=== PATIENT | female | born 1990 | race Caucasian/White ===

== ENCOUNTER 2024-09-26 09:21 | Emergency (ER) | payer OTHER, SELFPAY ==
--- NOTE | ~2024-09-26 | US_ITS ---
CLINICAL HISTORY: b l ovarian cysts, abd pain, N V, r o torsion Ultrasound pelvis transabdominal and transvaginal. COMPARISON: CT abdomen and pelvis dated 09/26/24 at 14:48 EDT Technique: Real time sonographic imaging, including color-flow imaging, was performed by the primary grade teacher. Multiple banking representative static images were saved for review. FINDINGS: Anteverted uterus appears normal and measures 10.8 x 4.1 x 6.7 cm. No uterine fibroids identified. Endometrium: 10 mm, within normal limits. Right ovary measures 5.5 x 6.0 x 4.8 cm. Normal color and arterial and venous waveform Doppler. Complex right ovarian cystic lesion without internal flow measuring 4.4 x 4.2 x 4.0 cm. Left ovary measures 4.6 x 3.4 x 3.6 cm. Normal color and arterial and venous waveform Doppler. No left adnexal mass identified. Complex left ovarian cystic lesion measuring 2.8 x 2.7 x 3.2 cm. Small amount of free fluid present within the posterior cul-de-sac. IMPRESSION: 1. No evidence of ovarian torsion. 2. Bilateral avascular complex cystic lesions likely representing hemorrhagic cyst measuring up to 4.4 cm on the right. Recommend follow-up imaging in 6-12 weeks. This document has been electronically signed by: Domingo Costello MD on 09/26/2024 18:57:04
--- NOTE | ~2024-09-26 | CT_ITS ---
CLINICAL HISTORY: diffuse abd pain n v CT abdomen and pelvis with IV contrast. COMPARISON: None provided. FINDINGS: Partially visualized lung bases are unremarkable. No focal hepatic lesion. Normal gallbladder. Normal pancreas. Normal adrenal glands. Symmetric renal enhancement. No hydronephrosis. Motion artifact limits evaluation of the portions of the bowel in the mid to lower abdomen. Appendix is not definitively identified. No bowel obstruction. Multiple normal-sized retroperitoneal lymph nodes. Normal abdominal aorta. Urinary bladder is unremarkable given degree of distention. Dominant left ovarian cyst/follicle measuring up to 3.7 cm. Dominant right ovarian cyst/follicle measuring up to 5.0 cm. Small fat containing umbilical hernia. No acute fracture or suspicious bone lesion. IMPRESSION: 1. Appendix is not definitively identified. No secondary evidence of appendicitis. No bowel obstruction. 2. Bilateral ovarian cystic lesions measuring up to 5.0 cm on the right and 3.7 cm on the left. Recommend pelvic ultrasound for further characterization. This document has been electronically signed by: Domingo Costello MD on 09/26/2024 16:17:22
--- NOTE | ~2024-09-26 | US_ITS ---
CLINICAL HISTORY: b l ovarian cysts, abd pain, N V, r o torsion Ultrasound pelvis transabdominal and transvaginal. COMPARISON: CT abdomen and pelvis dated 09/26/24 at 14:48 EDT Technique: Real time sonographic imaging, including color-flow imaging, was performed by the bookkeeper receptionist. Multiple consumer sales representative static images were saved for review. FINDINGS: Anteverted uterus appears normal and measures 10.8 x 4.1 x 6.7 cm. No uterine fibroids identified. Endometrium: 10 mm, within normal limits. Right ovary measures 5.5 x 6.0 x 4.8 cm. Normal color and arterial and venous waveform Doppler. Complex right ovarian cystic lesion without internal flow measuring 4.4 x 4.2 x 4.0 cm. Left ovary measures 4.6 x 3.4 x 3.6 cm. Normal color and arterial and venous waveform Doppler. No left adnexal mass identified. Complex left ovarian cystic lesion measuring 2.8 x 2.7 x 3.2 cm. Small amount of free fluid present within the posterior cul-de-sac. IMPRESSION: 1. No evidence of ovarian torsion. 2. Bilateral avascular complex cystic lesions likely representing hemorrhagic cyst measuring up to 4.4 cm on the right. Recommend follow-up imaging in 6-12 weeks. This document has been electronically signed by: Domingo Costello MD on 09/26/2024 18:57:04
--- NOTE | 2024-09-26 09:28 | ED_ITS ---
HPI - General Adult General Chief complaint: Nausea/Vomiting/Diarrhea Stated complaint: VOMITING NAUSEA Time Seen by Provider: 09/26/24 09:24 Source: patient and EMS Mode of arrival: EMS Limitations: no limitations History of Present Illness ED Provider: SHANNAN CASANOVA PA-C HPI narrative: 34 year old female pmhx significant for endometriosis and cyclical vomiting presents to the ED today via EMS for evaluation of diffuse abdominal pain, nausea, and vomiting x2 days. States this feels similar to her past cyclical vomiting symptoms. Denies consuming any abnormal foods. Admits to vaping daily. Patient states she has been evaluated at [facility] for this and discharged home. Denies fever, chills, urinary sx, flank pain. Related Data Allergies Allergy/AdvReac Type Severity Reaction Status Date / Time haloperidol (From Haldol) Allergy Involuntary Verified 09/26/24 09:37 Spasms oxycodone Allergy Vomiting Verified 09/26/24 09:37 Review of Systems 2 Review of Systems: Yes all other systems are reviewed and are negative PMFSH Past Medical History Attestation statement: The following information was validated with the patient. Source: old records reviewed and nursing notes reviewed Physical Exam ED Vital Signs: Vital Signs - 24 hr 09/26/24 09:31 09/26/24 10:05 09/26/24 14:26 Temperature 97.9 F Pulse Rate 86 Respiratory Rate 22 H 14 Blood Pressure 127/80 Pulse Oximetry 97 96 Oxygen Delivery Method Room Air Room Air 09/26/24 18:02 Temperature 98.9 F Pulse Rate 98 Respiratory Rate 18 Blood Pressure 109/60 Pulse Oximetry 97 Oxygen Delivery Method Room Air BMI result Body Mass Index 41.6 tachypneic General: uncomfortable appearing, retching Skin: Warm, dry, intact. No rashes or lesions. Head: Normocephalic, atraumatic. EENT: Hearing is intact b/l. Conjunctiva clear. PERRLA. EOM intact. Moist mucous membranes.? Neck: Supple without LAD Cardiac: Chest wall symmetric. RRR Lungs: Normal respiratory effort without accessory muscle use. CTA bilaterally. Abdomen: Obese abdomen soft, ND, mildly tender to palpation of the epigastric region without rebound or guarding. active bs x4. no cvat. Back: No midline spinous or paraspinal tenderness. No step off deformity. Ext: Upper and lower extremities atraumatic, without tenderness, deformity, swelling or erythema. Neuro: AOx3. Normal speech. Ambulating with steady gait. Course Course Course Narrative: 1042 -- [facility] records reviewed. Patient evaluated at their facility yesterday for nausea, vomiting, diarrhea and abdominal pain. Labs revealed a leukocytosis to 13.8 with left shift that appeared to be around patient's baseline. Potassium 3.4. Renal and liver function within normal limits. She was noted to have a lactic of 2.1 with negative troponin. negative. there was no abdominal imaging ordered. She required multiple doses of IV medications (Toradol, Ativan, Reglan, morphine, Zyprexa, Zofran) in order to get her symptoms under control. She appeared to respond well to IV Toradol and Zyprexa. He was able to tolerate p.o. intake and she was ultimately discharged home with outpatient follow-up. Todays visit: Labs reveal leukocytosis to 14.1 with left shift, mildly elevated from yesterday. chemistry shows hyperchloridemia to 114. no SUSANNA. random glucose 141. liver function wnl. lipase wnl. beta hcg undetectable. > patient has received reglan + benadryl IV. seems to respond well to this, lying comfortably on the exam bed sleeping. awaiting viral swabs, UA/UDS 1100 -- patient is starting to retch again. IV diazepam ordered. 1313 -- patient initially responsive to IV diazepam, sleeping in room. Awoke and began retching again. will order EKG to look at QT. plan for liter of LR, compazine and capcasin cream w/ re-evaluation. 1348 -- patient refusing capsacin cream. demanding more meds. ekg without acute ischemic changes, no qt prolongation, difficulty obtaining ekg as patient will not sit still. tech attempted ekg x3. patient has allergy of muscle spasms to haldol. she has already received benadryl. will trial droperidol and monitor. 1800 -- CT abdomen /pelvis showing bilateral ovarian cystic lesions measuring up to 5 cm in the right and 3.7 cm on the left. Appendix not definitively identified - given benign exam findings, I have low suspicion for appendicitis. otherwise unremarkable. > Discussed workup results with patient. Given intractable vomiting, will order Doppler to confirm flow to ovaries. Patient agreeable. No longer retching. I have provided her with quan hall and bronson to trial. > Sign-out given to Janine pending US results and likely d/c home. Reevaluation(s) Reevaluation #1: I KELSI GUEVARA PA-C HAVE ACCEPTED CARE OF THE PATIENT AT SIGNED OUT PENDING TRANSVAGINAL ULTRASOUND AND FINAL DISPOSITION ..... Patient had the scan, she is currently eating TRANSVAGINAL ULTRASOUNDIMPRESSION: 1. No evidence of ovarian torsion. 2. Bilateral avascular complex cystic lesions likely representing hemorrhagic cyst measuring up to 4.4 cm on the right. Recommend follow-up imaging in 6-12 weeks. Discussed findings with the patient, she admits she has PCOS, she will follow up with her sales and marketing analyst she is eating drinking eager for discharge Medications Administered Discontinued Medications Generic Name Dose Route Start Last Admin Trade Name Freq PRN Reason Stop Dose Admin Capsaicin 1 appl 09/26/24 13:11 09/26/24 13:48 Capsaicin 0.025% Cream 60 Gm Tube TOPICAL 09/26/24 13:12 Not Given ONCE ONE Protocol Diazepam 5 mg 09/26/24 11:01 09/26/24 11:08 Diazepam 10 Mg/2 Ml Cartridge IVPUSH 09/26/24 11:02 5 mg STAT STA Administration Diphenhydramine HCl 50 mg 09/26/24 09:42 09/26/24 10:01 Diphenhydramine Hcl 50 Mg/Ml Vial IVPUSH 09/26/24 09:43 50 mg ONCE ONE Administration Droperidol 1.25 mg 09/26/24 13:47 09/26/24 14:00 Droperidol 5 Mg/2 Ml Vial IVPUSH 09/26/24 13:48 1.25 mg ONCE ONE Administration Sodium Chloride 1,000 mls @ 999 mls/hr 09/26/24 09:45 09/26/24 11:10 Ns IV 09/26/24 10:45 Infused .Q1H1M PAOLA Infusion Lactated Ringer's 500 mls @ 999 mls/hr 09/26/24 13:14 09/26/24 19:36 Lr IV 09/26/24 13:44 Infused .Q31M ONE Infusion Iohexol 85 ml 09/26/24 14:53 09/26/24 14:53 Iohexol 350 Mg/Ml 100 Ml Infus..Btl IV 09/26/24 14:54 85 ml ONCE ONE Administration Ketorolac Tromethamine 30 mg 09/26/24 13:48 09/26/24 13:52 Ketorolac Tromethamine 30 Mg/Ml Vial IVPUSH 09/26/24 13:49 30 mg ONCE ONE Administration Metoclopramide HCl 10 mg 09/26/24 09:42 09/26/24 10:01 Metoclopramide Hcl 10 Mg/2 Ml Vial IVPUSH 09/26/24 09:43 10 mg ONCE ONE Administration Medical Decision Making Medical Decision Making [facility] Narrative: 34 year old female pmhx significant for endometriosis and cyclical vomiting presents to the ED today via EMS for evaluation of diffuse abdominal pain, nausea, and vomiting x2 days. vital signs stable. afebrile. she is uncomfortable appearing, rolling around on bed. Obese abdomen soft, ND, mildly tender to palpation of the epigastric region without rebound or guarding. active bs x4. Plan for labs, UA/UDS, pain control and IVF. Differential Diagnosis Differential Diagnoses: The differential diagnosis associated with the presentation includes cyclical vomiting, gastroenteritis, colitis, bowel obstruction, anxiety/ panic attack, endometriosis, IUP, ectopic, boerhaave syndrome, rachael dillan tear Admission/Observation not indicated Lab Data [facility] Lab Attestation statement: I reviewed the patient's lab results. as above. 09/26/24 09:47 09/26/24 09:47 Labs: Lab Results 09/26/24 09/26/24 Range/Units 09:47 14:26 WBC 14.1 H (4.8-10.8) X10*3/uL RBC 4.04 L (4.20-5.50) X10*6/uL Hgb 12.4 (12.0-16.0) g/dl Hct 35.4 L (37.0-47.0) % MCV 87.6 (80.0-98.0) fL MCH 30.7 (27.0-33.0) pg MCHC 35.0 (31.0-35.0) g/dl RDW 13.2 (11.0-16.0) % Plt Count 186 (160-400) X10*3/uL MPV 10.4 (9.4-12.3) fL Immature Gran % (Auto) 0.4 (0.0-0.4) % Neut % (Auto) 83.2 H (45-73) % Lymph % (Auto) 11.5 L (20-40) % [place] % (Auto) 4.7 (2-11) % Eos % (Auto) 0.0 (0-4) % Baso % (Auto) 0.2 (0-2) % Lymph # (Auto) 1.6 (1.2-4.9) X10*3/uL [place] # (Auto) 0.7 (0.1-1.2) X10*3/uL Eos # (Auto) 0.0 (0.0-0.4) X10*3/uL Baso # (Auto) 0.0 (0.0-0.2) X10*3/uL Abs Immat Gran (auto) 0.06 H (0.00-0.03) X10*3/uL Absolute Neuts (auto) 11.8 H (2.0-8.3) x10*3/uL Absolute Nucleated RBC 0.000 (0.0-0.012) X10*3/uL Nucleated RBC % (auto) 0.0 (0.0-0.2) /100WBC Sodium 142 (135-145) mmol/L Potassium 3.6 (3.3-5.1) mmol/L Chloride 114 H (96-108) mmol/L Carbon Dioxide 17 L (22-29) mmol/L Anion Gap 15 (12-20) BUN 13 (9-16) mg/dL Creatinine 0.71 (0.5-1.4) mg/dL Estim Creat Clear Calc 137.5 Estimated GFR > 60 Random Glucose 141 H (60-115) mg/dL Calcium 8.6 (8.4-10.2) mg/dL Magnesium 1.7 (1.6-2.6) mg/dL Total Bilirubin 0.7 (0.0-1.0) mg/dL AST 27 (5-31) U/L ALT 19 (0-31) U/L Alkaline Phosphatase 31 L (39-117) U/L Troponin I High Sens < 2.7 (<3.5-17.0) ng/L Total Protein 6.8 (6.5-8.0) g/dL Albumin 4.3 (3.5-5.0) g/dL Lipase 13 (8-78) U/L Beta HCG, Quant < 2 mIU/mL Influenza Type A (PCR) NEGATIVE (Negative) Influenza Type B (PCR) NEGATIVE (Negative) RSV RNA Qual (PCR) NEGATIVE (Negative) SARS-CoV-2 RNA (RT-PCR) NEGATIVE (Negative) Independent Interpretation I performed an independent interpretation of an: Ultrasound and CT Scan Interpretation: ct a/p without bowel obstruction pelvic US with doppler flow to b/l ovaries Radiology Impression Discussion of test interpretation with radiology: I have reviewed the radiologist's reading. Radiologist Impression: Date of Service: 09/26/24 Procedure(s): CT abdomen pelvis w IV con Accession Number(s): [id number] cc: Physician,Unknown ; Shannan Casanova~ Report Number: [id number]: Total DLP = 842.00 mGy-cm CLINICAL HISTORY: diffuse abd pain n v CT abdomen and pelvis with IV contrast. COMPARISON: None provided. FINDINGS: Partially visualized lung bases are unremarkable. No focal hepatic lesion. Normal gallbladder. Normal pancreas. Normal adrenal glands. Symmetric renal enhancement. No hydronephrosis. Motion artifact limits evaluation of the portions of the bowel in the mid to lower abdomen. Appendix is not definitively identified. No bowel obstruction. Multiple normal-sized retroperitoneal lymph nodes. Normal abdominal aorta. Urinary bladder is unremarkable given degree of distention. Dominant left ovarian cyst/follicle measuring up to 3.7 cm. Dominant right ovarian cyst/follicle measuring up to 5.0 cm. Small fat containing umbilical hernia. No acute fracture or suspicious bone lesion. IMPRESSION: 1. Appendix is not definitively identified. No secondary evidence of appendicitis. No bowel obstruction. 2. Bilateral ovarian cystic lesions measuring up to 5.0 cm on the right and 3.7 cm on the left. Recommend pelvic ultrasound for further characterization. This document has been electronically signed by: Domingo Costello MD on 09/26/2024 16:17:22 Date of Service: 09/26/24 Procedure(s): US pelvic ovarian doppler Accession Number(s): [id number] cc: Physician,Unknown ; Shannan Casanova~ CLINICAL HISTORY: b l ovarian cysts, abd pain, N V, r o torsion Ultrasound pelvis transabdominal and transvaginal. COMPARISON: CT abdomen and pelvis dated 09/26/24 at 14:48 EDT Technique: Real time sonographic imaging, including color-flow imaging, was performed by the consumer lending manager. Multiple branch customer service representative static images were saved for review. FINDINGS: Anteverted uterus appears normal and measures 10.8 x 4.1 x 6.7 cm. No uterine fibroids identified. Endometrium: 10 mm, within normal limits. Right ovary measures 5.5 x 6.0 x 4.8 cm. Normal color and arterial and venous waveform Doppler. Complex right ovarian cystic lesion without internal flow measuring 4.4 x 4.2 x 4.0 cm. Left ovary measures 4.6 x 3.4 x 3.6 cm. Normal color and arterial and venous waveform Doppler. No left adnexal mass identified. Complex left ovarian cystic lesion measuring 2.8 x 2.7 x 3.2 cm. Small amount of free fluid present within the posterior cul-de-sac. IMPRESSION: 1. No evidence of ovarian torsion. 2. Bilateral avascular complex cystic lesions likely representing hemorrhagic cyst measuring up to 4.4 cm on the right. Recommend follow-up imaging in 6-12 weeks. This document has been electronically signed by: Domingo Costello MD on 09/26/2024 18:57:04 Independent Historian Clinical information obtained from an independent historian. History obtained from or confirmed by: EMS External Record Review External record reviewed: Inpatient record, Office record, Outpatient record, Prior outpatient labs, Prior outpatient radiology and Outside ED record Prescription Management I considered prescription management with: Other (antiemetic) Chronic Conditions Patient?s care impacted by: Other (cyclical vomiting) Social Determinants Patient?s care significantly limited by Social Determinants of Health including: Other Social Determinant of Health Critical Care Time Critical Care Time Critical Care Time: Yes Total Critical Care Time: 35 Attestation: Critical care time in the amount of 35 minutes has been provided to the patient in terms of direct patient care, frequent reevaluation, review and interpretation of medical data and results, and management of potentially life- threatening conditions. This is all outside of any medical procedures. Discharge Plan Discharge Clinical Impression: Ovarian cyst Patient Disposition: Home, Self-Care Instructions: Ovarian Cyst (ED) Additional Instructions: All of your screening labs were normal, the CT scan of your abdomen and pelvis was negative for acute process. The transvaginal ultrasound revealed that you have bilateral ovarian cyst, the recommendation is free to follow up with your sales and marketing analyst for repeat transvaginal ultrasound in 6-12 weeks. Follow up with your primary care provider as needed. Interventions: ED Discharge Assessment Last Done: 09/26/24 19:28 Discharge Date/Time: 09/26/24 19:43 Print Language: [place]
[2024-09-26 09:31] VITALS: BP 127/80; PULSE 114; PULSE 86; RESP 22; O2SAT 95; O2SAT 97; BMI 41.6
[2024-09-26 09:55] LABS: MANUAL DIFF FLAG NO
[2024-09-26 09:57] LABS: Hematocrit 35.4 % (37.0-47.0); Hemoglobin 12.4 g/dl (12.0-16.0); Imm Gran Abs Auto 0.06 X10*3/uL (0.00-0.03); Imm Gran Pct Auto 0.4 % (0.0-0.4); Lymphocytes Absolute Auto 1.6 X10*3/uL (1.2-4.9); Mean Corpuscular HGB Conc 35.0 g/dl (31.0-35.0); Mean Corpuscular Hemoglobin 30.7 pg (27.0-33.0); Mean Corpuscular Volume 87.6 fL (80.0-98.0); NRBC Abs Auto 0.000 X10*3/uL (0.0-0.012); NRBC Pct Auto 0.0 /100WBC (0.0-0.2); Platelet Count 186 X10*3/uL (160-400); Red Blood Count 4.04 X10*6/uL (4.20-5.50); White Blood Count 14.1 X10*3/uL (4.8-10.8)
--- NOTE | 2024-09-26 10:01 | PC.NURSE ---
Pt vomiting constantly. rocking in bed. moist mm.
[2024-09-26 10:05] VITALS: TEMP 36.6
[2024-09-26 10:17] LABS: Alanine Aminotransferase 19 U/L (0-31); Albumin Level 4.3 g/dL (3.5-5.0); Alkaline Phosphatase 31 U/L (39-117); Anion Gap 15 (12-20); Aspartate Amino Transferase 27 U/L (5-31); Blood Urea Nitrogen 13 mg/dL (9-16); Calcium 8.6 mg/dL (8.4-10.2); Carbon Dioxide 17 mmol/L (22-29); Chloride 114 mmol/L (96-108); Creatinine Clr Calc Pharmacy 137.5; Estimated Glomerular Filt Rate > 60; Lipase 13 U/L (8-78); Magnesium 1.7 mg/dL (1.6-2.6); Potassium 3.6 mmol/L (3.3-5.1); Sodium 142 mmol/L (135-145); Total Protein 6.8 g/dL (6.5-8.0)
[2024-09-26 10:50] LABS: Resp Syncy Virus RNA Qual PCR NEGATIVE (Negative); SARS COV2 PCR INHOUSE NEGATIVE (Negative)
[2024-09-26] MEDS: diazePAM 10 MG/2 ML CARTRIDGE 5 MG IVPUSH (11:08)
--- NOTE | 2024-09-26 13:09 | ECG_ITS ---
Test Reason : vommiting Blood Pressure : */* mmHG Vent. Rate : 70 BPM Atrial Rate : 70 BPM P-R Int : 180 ms QRS Dur : 90 ms QT Int : 374 ms P-R-T Axes : 63 77 79 degrees QTcB Int : 403 ms Poor data quality, interpretation may be adversely affected AGE AND GENDER SPECIFIC ECG ANALYSIS Sinus rhythm with marked sinus arrhythmia ST elevation consider lateral injury or acute infarct ACUTE VT / STEMI Abnormal ECG No previous ECGs available Referred By: Shannan Casanova Electronically Signed By:
[2024-09-26] MEDS: Lactated Ringers 500 ML 999 ML IV (13:55)
--- NOTE | 2024-09-26 14:00 | PC.NURSE ---
Pt found dry heaving again, restless, c/o abd pain. Unable to perform ekg d/t pts inability to sit still. Provider made aware, new orders received.
[2024-09-26 14:26] VITALS: RESP 14; O2SAT 96
[2024-09-26] MEDS: iohexoL 350 MG/ML 100 ML INFUS..BTL 85 ML IV (14:53)
[2024-09-26 15:08] LABS: Troponin-I High Sensitivity < 2.7 ng/L (<3.5-17.0)
--- NOTE | 2024-09-26 15:26 | PC.NURSE ---
Pt resting more comfortably, states Im getting there Pt is resting comfortably w/ lights out. Awaiting CT results
[2024-09-26 18:02] VITALS: BP 109/60; PULSE 98; RESP 18; TEMP 37.2; O2SAT 97
[2024-09-26 19:19] VITALS: BP 116/62; PULSE 56; RESP 18; TEMP 36.7; O2SAT 100
[2024-09-26 19:28] VITALS: BP 116/62; PULSE 56; RESP 18; TEMP 36.7; O2SAT 100
== END 2024-09-26 19:43 | disposition home or self-care (01) ==
PROVIDERS: Physician Assistant Medical; Emergency Provider Emergency Medicine
DX: N83.202 Unspecified ovarian cyst, left side (principal); N83.201 Unspecified ovarian cyst, right side; R10.13 Epigastric pain; R11.2 Nausea with vomiting, unspecified; Z03.818 Encounter for observation for suspected exposure to other biological agents ruled out; E66.9 Obesity, unspecified; Z68.41 Body mass index [BMI] 40.0-44.9, adult
CPT/HCPCS: 36415; 74177; 76830; 76856; 80053; 83690; 83735; 84484; 84702; 85025; 87637; 93005; 93975; 96361; 96374; 96375; 99285; 99291; J1200; J1790; J1885; J2765; J3360; J7120; Q9967

== ENCOUNTER → 2024-09-26 14:01 | Outpatient (BNV) | payer OTHER, SELFPAY | PROVIDERS: Emergency Provider Emergency Medicine; Visit Provider Radiology Diagnostic Radiology | DX: N83.201 Unspecified ovarian cyst, right side (principal); N83.202 Unspecified ovarian cyst, left side | CPT/HCPCS: 76830; 76856 ==

== ENCOUNTER 2025-02-08 02:42 | Emergency (ER) | payer OTHER, SELFPAY ==
[2025-02-08 02:49] VITALS: BP 144/82; PULSE 76; O2SAT 100; BMI 33.3
[2025-02-08 02:54] VITALS: BP 101/38; PULSE 71; RESP 22; TEMP 36.4; O2SAT 100
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
[2025-02-08] MEDS: diazePAM 10 MG/2 ML CARTRIDGE IM (03:24)
--- NOTE | 2025-02-08 03:35 | ECG_ITS ---
Test Reason : BRADYCARDIA Blood Pressure : */* mmHG Vent. Rate : 54 BPM Atrial Rate : 54 BPM P-R Int : 168 ms QRS Dur : 86 ms QT Int : 416 ms P-R-T Axes : 65 62 70 degrees QTcB Int : 394 ms Sinus bradycardia with sinus arrhythmia Otherwise normal ECG When compared with ECG of 26-Sep-2024 13:54, mild ST elevation now present in Inferior leads Referred By: Nawaf Bruce Electronically Signed By: CHECO LEON
[2025-02-08 04:00] VITALS: BP 121/70; PULSE 51; RESP 18; TEMP 36.4; O2SAT 100
[2025-02-08 04:06] LABS: MANUAL DIFF FLAG NO
[2025-02-08 04:07] LABS: Hematocrit 37.6 % (37.0-47.0); Hemoglobin 13.0 g/dl (12.0-16.0); Imm Gran Abs Auto 0.04 X10*3/uL (0.00-0.03); Imm Gran Pct Auto 0.3 % (0.0-0.4); Lymphocytes Absolute Auto 1.7 X10*3/uL (1.2-4.9); Mean Corpuscular HGB Conc 34.6 g/dl (31.0-35.0); Mean Corpuscular Hemoglobin 31.0 pg (27.0-33.0); Mean Corpuscular Volume 89.5 fL (80.0-98.0); NRBC Abs Auto 0.000 X10*3/uL (0.0-0.012); NRBC Pct Auto 0.0 /100WBC (0.0-0.2); Platelet Count 183 X10*3/uL (160-400); Red Blood Count 4.20 X10*6/uL (4.20-5.50); White Blood Count 14.3 X10*3/uL (4.8-10.8)
[2025-02-08 04:21] LABS: Resp Syncy Virus RNA Qual PCR NEGATIVE (Negative); SARS COV2 PCR INHOUSE NEGATIVE (Negative)
[2025-02-08 04:22] LABS: Alanine Aminotransferase 16 U/L (0-31); Albumin Level 4.5 g/dL (3.5-5.0); Alkaline Phosphatase 29 U/L (39-117); Anion Gap 17 (12-20); Aspartate Amino Transferase 29 U/L (5-31); Blood Urea Nitrogen 16 mg/dL (9-16); Calcium 9.3 mg/dL (8.4-10.2); Carbon Dioxide 21 mmol/L (22-29); Chloride 107 mmol/L (96-108); Creatinine Clr Calc Pharmacy 115.3; Estimated Glomerular Filt Rate > 60; Lipase 19 U/L (8-78); Potassium 3.6 mmol/L (3.3-5.1); Sodium 141 mmol/L (135-145); Total Protein 7.2 g/dL (6.5-8.0)
[2025-02-08 06:00] VITALS: BP 125/85; PULSE 68; RESP 18; TEMP 36.4; O2SAT 100
== END 2025-02-08 06:36 | disposition home or self-care (01) ==
PROVIDERS: Physician Assistant; Emergency Provider Emergency Medicine
DX: R11.15 Cyclical vomiting syndrome unrelated to migraine (principal); Z03.818 Encounter for observation for suspected exposure to other biological agents ruled out
CPT/HCPCS: 80053; 83690; 85025; 87637; 93005; 96360; 96372; 99285; J0737; J1200; J1630; J1885; J3360

== ENCOUNTER → 2025-02-08 03:35 | Outpatient (BNV) | payer OTHER, SELFPAY | PROVIDERS: Emergency Provider Emergency Medicine; Visit Provider Internal Medicine | DX: R00.1 Bradycardia, unspecified (principal) | CPT/HCPCS: 93010 ==